=== PATIENT | female | born 2005 | race Caucasian/White ===

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

== ENCOUNTER 2024-06-23 03:05 | Inpatient (IN) | payer BC ==
[2024-06-23] MEDS: ELECTROLYTE-148 SOLN 1,000 ML IV SCH (03:40)
[2024-06-23] MEDS ORDERED: OXYTOCIN 20 UNITS in 0.9% NS 20 UNIT/1,000 ML INFUS.BAG IV ONE ×2 (03:56→08:22)
[2024-06-23 04:09] LABS: BASO % 0.2 % (0-2.0); EOS % 1.3 % (0-4.5); HEMATOCRIT 39.3 % (32.4-45.2); HEMOGLOBIN 13.5 GM/dL (10.7-15.3); LYMPH % 25.2 % (8-40); MCH 30.9 pg (25.7-33.7); MCHC 34.4 g/dl (32.0-36.0); MEAN CELL VOLUME 89.8 fl (80-96); MEAN PLT VOLUME 8.5 fl (7.5-11.1); MONO % 11.2 % (3.8-10.2); NEUT % 62.1 % (42.8-82.8); PLATELET COUNT 226 10^3/uL (134-434); RBC 4.38 M/mm3 (3.60-5.2); RDW 14.3 % (11.6-15.6); WHITE BLOOD COUNT 9.6 K/mm3 (4.0-10.0)
[2024-06-23 04:18] LABS: INR 0.87 (0.83-1.09)
[2024-06-23 04:21] LABS: ACTIVATED PTT 29.6 SECONDS (25.2-36.5)
[2024-06-23 04:28] LABS: CHLORIDE 109 mmol/L (98-107); POTASSIUM 4.2 mmol/L (3.5-5.1); SODIUM 140 mmol/L (136-145)
[2024-06-23] MEDS: OXYTOCIN 20 UNITS in 0.9% NS 20 UNIT/1,000 ML INFUS.BAG IV SCH (04:28)
[2024-06-23 04:29] LABS: CALCIUM 9.3 mg/dL (8.5-10.1)
[2024-06-23 04:30] LABS: ANION GAP 10 mmol/L (4-13); BLOOD UREA NITROGEN 7.5 mg/dL (7-18); CO2 21 mmol/L (21-32); GLUCOSE,RANDOM 95 mg/dL (74-106)
[2024-06-23 04:33] LABS: CREATININE 0.5 mg/dL (0.55-1.3)
[2024-06-23 04:50] LABS: CORD BASE EXCESS -1.4 mmol/L (0-2); CORD HCO3 22.3 mmHg (20-29); CORD PCO2 35.4 mmHg (30-78); CORD pH 7.417 (7.14-7.44)
[2024-06-23 04:53] LABS: CORD HCO3 27.7 mmHg (20-29); CORD PCO2 58.2 mmHg (30-78); CORD pH 7.295 (7.14-7.44)
[2024-06-23] MEDS ORDERED: WITCH HAZEL 50% (TUCKS) 40 PAD/JAR PAD TP PRN (04:57)
[2024-06-23] MEDS ORDERED: BENZOCAINE 28 GM HEMORRHOIDAL OINTMENT TP PRN (04:57)
[2024-06-23] MEDS ORDERED: BISACODYL 10 MG SUPP.RECT RC PRN (04:57)
[2024-06-23] MEDS ORDERED: METHYLERGONOVINE MALEATE 0.2 MG/1 ML AMP IM PRN (04:57)
[2024-06-23 05:21] VITALS: BMI 29.8
[2024-06-23 05:27] LABS: HIV INTERPRETATION NEGATIVE (NEGATIVE)
[2024-06-23] MEDS ORDERED: ACETAMINOPHEN 325 MG TABLET (FP) ONE (05:27)
[2024-06-23] MEDS: ACETAMINOPHEN 325 MG TABLET (FP) PO PRN (05:30)
[2024-06-23 06:46] VITALS: RESP 18
[2024-06-23] MEDS: BENZOCAINE 20% 57 GM BOTTLE TP PRN (10:11)
[2024-06-23] MEDS: IBUPROFEN 600 MG TABLET (FP) PO PRN (22:45)
[2024-06-24 07:33] LABS: BASO % 0.5 % (0-2.0); EOS % 1.7 % (0-4.5); HEMATOCRIT 33.5 % (32.4-45.2); HEMOGLOBIN 11.6 GM/dL (10.7-15.3); LYMPH % 25.9 % (8-40); MCH 31.5 pg (25.7-33.7); MCHC 34.6 g/dl (32.0-36.0); MEAN CELL VOLUME 90.9 fl (80-96); MEAN PLT VOLUME 8.6 fl (7.5-11.1); MONO % 7.6 % (3.8-10.2); NEUT % 64.3 % (42.8-82.8); PLATELET COUNT 181 10^3/uL (134-434); RBC 3.69 M/mm3 (3.60-5.2); RDW 14.6 % (11.6-15.6); WHITE BLOOD COUNT 9.1 K/mm3 (4.0-10.0)
[2024-06-24] MEDS ORDERED: SENNOSIDES/DOCUSATE COMBO (SENNA PLUS) TABLET (UD) PO PRN (22:00)
[2024-06-24 22:12] VITALS: BP 129/75; PULSE 75; TEMP 98.6
== END 2024-06-25 19:35 | disposition home or self-care (01) | DRG 807 ==
LOC: JDEL 03:05 → JERBED 03:30 → JLDR 03:30 → UNDOADMIN 03:30 → J3W 08:35
PROVIDERS: ADMIT Obstetrics & Gynecology; ATTEND Obstetrics & Gynecology
PROC: 10E0XZZ Delivery of Products of Conception, External Approach (ICD-10-PCS; principal; 2024-06-23)
PROC: 0HQ9XZZ Repair Perineum Skin, External Approach (ICD-10-PCS; 2024-06-23)
DX: O69.81X0 Labor and delivery complicated by cord around neck, without compression, not applicable or unspecified (principal); Z37.0 Single live birth; O70.0 First degree perineal laceration during delivery; Z3A.38 38 weeks gestation of pregnancy
CPT/HCPCS: 36415; 36600; 59409; 80048; 82803; 85025; 85610; 85730; 86780; 86803; 86850; 86900; 86901; 87389